=== PATIENT | female | born 1955 | race Caucasian/White ===

== ENCOUNTER 2022-05-13 10:53 | Emergency (ER) | payer BC, MEDICARE ==
[~2022-05-13] VITALS: Ht 172.7 cm; Wt 87.8 kg
[2022-05-13] MEDS ORDERED: CYCL-707 PO (14:05)
[2022-05-13] MEDS ORDERED: IBUP-1022 PO (14:05)
[2022-05-13 14:19] VITALS: BP 161/87
== END 2022-05-13 14:21 | disposition home or self-care (01) ==
LOC: M ED 10:53
DX: S00.83XA Contusion of other part of head, initial encounter (principal); S13.4XXA Sprain of ligaments of cervical spine, initial encounter; W18.30XA Fall on same level, unspecified, initial encounter; Y92.009 Unspecified place in unspecified non-institutional (private) residence as the place of occurrence of the external cause; Y93.9 Activity, unspecified; Y99.9 Unspecified external cause status; Z79.899 Other long term (current) drug therapy

== ENCOUNTER → 2025-03-21 | Outpatient (CLI) | payer MEDICARE ==
[~2025-03-21] MED LIST: CYCL-707 PO; IBUP-1022 PO
== END ==
LOC: M SOG 07:07
PROVIDERS: ATTEND Physician Assistant
DX: M79.641 Pain in right hand (principal); M79.642 Pain in left hand